=== PATIENT | male | born 1955 | race Caucasian/White ===

== ENCOUNTER 2025-01-09 16:37 | Inpatient (IN) | payer MEDICARE, OTHER ==
[~2025-01-09] VITALS: Ht 185.4 cm; Wt 110.9 kg
[~2025-01-09 16:37] MED LIST: ASPIRIN EC81 MG PO; ATORVASTATIN CA80 MG PO; BENADRYL25 MG PO; CARVEDILOL6.25 MG PO; CIPRO500 MG PO; CLOPIDOGREL75 MG PO; EPIPEN 2-P0.3 MG/0.3 IM; FAMOTIDINE20 MG PO; FLOMAX0.4 MG PO; K-TAB ER20 MEQ PO; LASIX40 MG PO; LISINOPRIL10 MG PO; OXYBUTYNIN CHLO10 MG PO; PREDNISONE20 MG PO; SEVOFLURANE 250 ML BTL INH ONE
[2025-01-09 18:38] LABS: BASOPHILS 0.5 % (0-2); EOSINOPHILS 2.1 % (0-6); HEMATOCRIT 40.2 % (35.0-50.0); HEMOGLOBIN 13.4 g/dL (12.0-18.0); LYMPHOCYTES 6.1 % (24-44); MCH 29.8 (27-36); MCHC 33.4 g/dl (30-36); MCV 89.1 fl (81-99); MONOCYTES 7.5 % (0-12); NEUTROPHILS 83.8 % (39-80); PLATELET COUNT 129 K/uL (140-440); RBC 4.51 M/ul (4.3-5.7); RDW 14.9 (10.5-15.0)
[2025-01-09 18:48] LABS: INR 1.02 (0.80-1.30); PROTIME 13.3 Sec (11.2-14.2)
[2025-01-09 18:52] LABS: ALBUMIN 3.3 g/dL (3.4-5.0); ALBUMIN/GLOBULIN RATIO 0.97 (1.1-2.4); BILIRUBIN, TOTAL 0.8 mg/dL (0.2-1.0); BUN/CREATININE RATIO 11.81 (6.0-28.6); CREATININE, SERUM 1.1 mg/dL (0.70-1.30); PROTEIN, TOTAL 6.7 g/dL (6.4-8.2)
[2025-01-09] MEDS ORDERED: ALBUTEROL SULFATE 0.083% 3 ML VIAL INH ONE (19:00)
[2025-01-09] MEDS ORDERED: SUCCINYLCHOLINE IN 0.9% NACL 200 MG/10 ML SYRINGE ONE (19:29)
[2025-01-09] MEDS ORDERED: DEXAMETHASONE SOD PHOS 4 MG/ML VIAL ONE (19:29)
[2025-01-09] MEDS ORDERED: propofoL 200 MG/20 ML VIAL ONE ×2 (19:29→20:10)
[2025-01-09] MEDS ORDERED: LIDOCAINE HCL 2% 5 ML SDV ONE (19:29)
[2025-01-09] MEDS ORDERED: ondansetron HCL 4 MG/2 ML VIAL ONE (19:29)
[2025-01-09] MEDS ORDERED: fentaNYL citrate 100 MCG/2 ML VIAL ONE (19:29)
[2025-01-09] MEDS ORDERED: SUGAMMADEX SODIUM 200 MG/2 ML ML ONE (22:11)
[2025-01-09] MEDS ORDERED: DEXTROSE 5% - LACTATED RINGERS 1,000 ML IV SCH (22:30)
[2025-01-09] MEDS ORDERED: HYDROCODONE/ACETA 5/325 TAB PO PRN (22:30)
[2025-01-09] MEDS ORDERED: PROCHLORPERAZINE EDISYLATE 10 MG/2 ML VIAL IV PRN (22:30)
[2025-01-09] MEDS ORDERED: LIDOCAINE 2% VISCOUS 6 ML SYR TOP ONE (22:30)
[2025-01-09] MEDS ORDERED: HYDROmorphone HCL 1 MG/ML SYR IV PRN (22:30)
[2025-01-09] MEDS ORDERED: fentaNYL citrate 50 MCG/ML SDV ONE (22:42)
[2025-01-09] MEDS ORDERED: KETOROLAC TROMETHAMINE 15 MG/ML VIAL ONE (22:44)
[2025-01-09] MEDS ORDERED: ACETAMINOPHEN 1,000 MG/100 ML VIAL ONE (22:44)
[2025-01-09] MEDS ORDERED: KETOROLAC TROMETHAMINE 15 MG/ML VIAL IV ONE (23:00)
[2025-01-09] MEDS ORDERED: ACETAMINOPHEN 1,000 MG/100 ML VIAL IV ONE (23:00)
[2025-01-09] MEDS ORDERED: BUDESONIDE 0.5 MG/2 ML VIAL INH SCH (23:03)
[2025-01-09] MEDS ORDERED: ALBUTEROL SULFATE 0.083% 3 ML VIAL INH PRN (23:15)
--- NOTE | 2025-01-09 23:35 | NUR ---
PATIENT ARRIVED TO CCU ROOM 128 VIA STRETCHER. HANDOFF REPORT RECEIVED FROM COURT COMMISSIONER. ALL QUESTIONS ANSWERED. RESPIRATORY THERAPY AT BEDSIDE. PATIENT ON BIPAP SETTINGS 14/6 AT 30% FIO2, TOLERATING WELL. PATIENT OPENS EYES TO TOUCH AND VERBAL STIMULI, BUT QUICKLY CLOSES EYES. PATIENT VITAL SIGNS STABLE. PATIENT DAUGHTER AT BEDSIDE, PROVIDED WITH UPDATE. PATIENT PERSONAL BELONGINGS PLACED IN CLOSET, CELL PHONE PLACED IN LOCK BOX. PATIENT REPOSITIONED IN BED. PATIENT HAS CALL LIGHT IN REACH, DOOR AND CURTAIN REMAIN OPEN FOR PATIENT SAFETY.
[2025-01-09 23:51] VITALS: BP 124/67
[2025-01-10] VITALS (14 sets, daily range): BP systolic 100–143; BP diastolic 58–85
--- NOTE | 2025-01-10 00:03 | NUR ---
01/10/25 Lily Roberts 2228- RT CALLED TO PACU FOR BIPAP PRIOR TO PT ARRIVAL. PT ARRIVES TO PACU, SEMI DARBY POSITION PULLING AT NRB MASK. O2 AT 15L PER NRB, O2 SATS 80%, ACCESSORY MUSCLE USE AND PROLONGED EXPIRATORY. PT AWAKE BUT DROWSY. LR INFUSING TO LFA IV. PT INFORMED ON NEED FOR BIPAP, ALL MONITORS IN PLACE. ABD ROUND. 2231- BIPAP IN PLACE PER RT, PT TRYING TO SLIDE DOWN IN BED AND CHANGE POSITIONS C/O UPPER BACK PAIN. PT DIFFICULT TO REDIRECT. 2235- PT NEEDING CONSTANT REMINDERS NOT TO PULL BIPAP OFF, PT IS FRUSTRATED AND WANTING BIPAP REMOVED. PT IS ANXIOUS AND CONTINUES TO CHANGE POSITION FOR BACK PAIN. 2245- PT MEDICATED WITH TORADOL AND TYLENOL IV FOR PAIN. ENCOURAGE PT TO ASSIST IN FINDING POSITION OF COMFORT. EDUCATED ON NEED FOR BIPAP, PT STILL REACHING INTERMITTENTLY FOR MASK. CONTINUE TO MONITOR, LUMBER PULLER REMAINS AT BEDSIDE. 2300- AFTER MULTIPLE POSITION CHANGES, PT APPEARS COMFORTABLE AND ABLE TO REST IN SEMI DARBY POSITION AND LEGS ELEVATED. PT RESTING WITH BIPAP IN PLACE. CONTINUE TO MONITOR. 2315- PT CONTINUES TO REST, PLAN TO MOVE PT TO ICU FOR CONTINUED CARE. 2320- PT TAKEN TO ICU WITH ALL MONITORS, BI PAP, RT, THIS RN AND LUMBER PULLER. PT MOVED FROM STRETCHER TO BED VIA SHEET LIFT. PT WAKES FOR SHORT TIME BUT ABLE TO GET COMFORTABLE AND FALL BACK TO SLEEP. 2330- ASSISTED WITH PLACED ALL MONITORS AND GETTING PT TRANSFERRED TO ICU MONITORING. REPORT TO NHNUG RN AT BEDSIDE, PT CONTINUES TO REST, RT REMAINS IN ROOM, CARE OF PT TURNED OVER AT THIS TIME.
--- NOTE | 2025-01-10 00:52 | NUR ---
VITO REPOSITIONED IN BED. PATIENT REMAINS ON BIPAP, TOLERATING WELL. SPO2 90%. PATIENT VITAL SIGNS STABLE. PATIENT DOOR AND CURTAIN REMAIN OPEN FOR PATIENT SAFETY. NO NEEDS AT THIS TIME. CALL LIGHT IN REACH.
[2025-01-10] MEDS ORDERED: ondansetron HCL 4 MG/2 ML VIAL IV PRN (01:30)
--- NOTE | 2025-01-10 01:30 | NUR ---
PATIENT AWAKE, REQUESTING TO TAKE OFF BIPAP. RT CALLED TO BEDSIDE. PATIENT TAKEN OFF BIPAP, PLACED ON 12L NC. PATIENT STATES HE NEEDS TO VOID, URINAL PROVIDED. PATIENT VOIDS 500CC. PATIENT REORIENTED TO TIME AND EVENT, UPDATED ON PLAN OF CARE. PATIENT STATES HE HAS PAIN IN HIS LOWER BACK. PRN PAIN MEDICATION GIVEN PER EMAR. PATIENT DENIES ANY NAUSEA. PATIENT STATES HE FEELS HOT, TEMPERATURE TAKEN AND WNL. HEAT TURNED DOWN IN ROOM AND BLANKETS REMOVED PER REQUEST. PATIENT HAS NO FURTHER NEEDS AT THIS TIME. CALL LIGHT IN REACH. DOOR AND CURTAIN REMAIN OPEN FOR PATIENT SAFETY.
--- NOTE | 2025-01-10 03:20 | NUR ---
PATIENT RESTING IN BED WITH EYES CLOSED, RR 12. PATIENT OXYGEN ADJUSTED PER RESPIRATORY THERAPY. PATIENT TITRATED DOWN TO 8L HIGH FLOW NC, SPO2 91%. PATIENT HAS NO NEEDS AT THIS TIME. CALL LIGHT IN REACH.
[2025-01-10 05:20] LABS: HEMATOCRIT 40.6 % (35.0-50.0); HEMOGLOBIN 13.4 g/dL (12.0-18.0); MCH 29.5 (27-36); MCHC 32.9 g/dl (30-36); MCV 89.5 fl (81-99); PLATELET COUNT 124 K/uL (140-440); RBC 4.54 M/ul (4.3-5.7); RDW 14.7 (10.5-15.0)
--- NOTE | 2025-01-10 05:20 | NUR ---
patient SPO2 drops as low as 76% while patient repositions self in bed. patient titrated up to 15L high flow NC. patient updated on plan of care for the morning. patient SPO2 93%, vital signs stable. TV turned on per request, no further needs at this time. call light in reach.
[2025-01-10 05:33] LABS: ANION GAP 10.2 (7-21); BUN/CREATININE RATIO 12.8 (6.0-28.6); CALCIUM 8.9 mg/dL (8.5-10.1); CREATININE, SERUM 1.25 mg/dL (0.70-1.30); MAGNESIUM 1.5 mg/dL (1.8-2.4); PHOSPHORUS, INORGANIC 4.6 mg/dL (2.5-4.9); POTASSIUM 4.2 mmol/L (3.5-5.1)
[2025-01-10 05:36] LABS: LYMPHOCYTES, MANUAL DIFF 6; NEUTROPHILS, MANUAL DIFF 94
--- NOTE | 2025-01-10 06:03 | NUR ---
imaging in room to obtain CXR. patient has no needs at this time. call light in reach.
--- NOTE | 2025-01-10 06:30 | NUR ---
PATIENT TITRATED DOWN TO 5L HIGH FLOW NC, SPO2 95%. PATIENT HAS NO NEEDS AT THIS TIME. CALL LIGHT IN REACH.
--- NOTE | 2025-01-10 06:40 | CONS ---
[facility] [address], [place] [address] Signed DATE OF CONSULTATION: 01/09/2025 CHIEF COMPLAINT: Esophageal foreign body. HISTORY OF PRESENT ILLNESS: Amando is a 69-year-old significantly disabled gentleman who was eating steak yesterday, had it get stuck in his throat. He said he has not passed and he has been coughing up saliva ever since. He came to the emergency room for evaluation. He said he has COPD at his baseline and often has rhonchi. He said he is out of his inhalers and has not taken them in quite some time. I have been asked to see him as a local general surgeon on-call here in the emergency room. His daughter is with him. PAST MEDICAL HISTORY: 1. Lower extremity edema. 2. COPD. 3. Congestive heart failure. 4. Gallstones. 5. Kidney stones. 6. Hypertension. 7. Hyperlipidemia. 8. Bladder spasms. 9. Obesity. 10. Peripheral arterial disease. PAST SURGICAL HISTORY: Includes: 1. Right femoral artery stent. 2. Right ankle fracture repair with metal remaining. SOCIAL HISTORY: He does smoke marijuana. His daughter is Consuelo at [phone]. Dianne Cruz is his nurse practitioner in [place], [place]. He prefers the [facility]. FAMILY HISTORY: None. REVIEW OF SYSTEMS: He had 10 systems reviewed and those were included in the above. ALLERGIES: Cipro. Electronically Signed By: LANE PARRY MD 01/10/25 0640 PATIENT NAME: AMANDO COBURN [facility] CONSULTATION DATE OF : 55 REPORT #: [id number] PHYSICIAN: LANE PARRY MD PCP: DIANNE CRUZ NP REPORT IS CONFIDENTIAL AND NOT TO BE RELEASED WITHOUT AUTHORIZATION [facility] [address], [place] [address] Signed MEDICATIONS: 1. Epinephrine pen. 2. Carvedilol. 3. Atorvastatin. 4. Oxybutynin. 5. Potassium. 6. Flomax. 7. Plavix. 8. Lisinopril. 9. Furosemide. PHYSICAL EXAMINATION: VITAL SIGNS: Blood pressure is 152/87, heart rate 87, respiratory rate 16, temperature is 98.3. He is 92% on room air. He is 6 feet 1 inch tall 110 kg with a body mass index of 32. GENERAL: Amando is a 69-year-old gentleman lying supine semi-recumbent in his ER bed. He appears older than his stated age. He has a very full round face. He has a full face barajas and mustache. LUNGS: He has moderately distant breath sounds. He does have mild bilateral rhonchi. HEART: Regular rate and rhythm without murmurs. ABDOMEN: Obese, but soft and nontender. LABORATORY DATA: His white blood cell count 12.7, hemoglobin 13, neutrophils 83, platelets 129. X-rays, none. ASSESSMENT AND PLAN: Amando is a 69-year-old significantly disabled gentleman, who is here with an esophageal foreign body consisting of steak. I explained to him the nature of an upper endoscopy. He said he has never consented for a lower endoscopy. We reviewed the test in detail. There is risk including, but not limited to gas bloating, crampy abdominal pain, bleeding, perforation requiring surgery, and missed diagnosis. We also reviewed the need for monitored anesthesia care. He understands he will be in the hospital for an hour or two after the procedure and go home later. He has expressed understanding and would like to proceed. Lane Parry MD ALB/MODL /[id number] Electronically Signed By: LANE PARRY MD 01/10/25 0640 PATIENT NAME: AMANDO COBURN [facility] CONSULTATION DATE OF : 55 REPORT #: [id number] PHYSICIAN: LANE PARRY MD PCP: DIANNE CRUZ NP REPORT IS CONFIDENTIAL AND NOT TO BE RELEASED WITHOUT AUTHORIZATION [facility] [address] [place] [id number] Signed cc: SEEMA [place] Andrew L Bower, MD Copies: LANE PARRY MD ~ Electronically Signed By: LANE PARRY MD 01/10/25 0640 PATIENT NAME: AMANDO COBURN [facility] CONSULTATION DATE OF : 55 REPORT #: [id number] PHYSICIAN: LANE PARRY MD PCP: DIANNE CRUZ NP REPORT IS CONFIDENTIAL AND NOT TO BE RELEASED WITHOUT AUTHORIZATION
--- NOTE | 2025-01-10 06:40 | OR ---
[facility] [address] [place], [place] [address] Signed DATE OF OPERATION: 01/09/2025 SURGEON: Lane Parry MD PREOPERATIVE DIAGNOSIS: Esophageal foreign body (steak). POSTOPERATIVE DIAGNOSES: 1. Esophageal foreign body (steak) at 30 cm. 2. GE junction at 35 cm. PROCEDURE: EGD with foreign body removal. FINDINGS: Amando has an area about 5 cm or so above his GE junction near the heart that is just wide enough to pass the adult gastroscope. Of course, it was edematous and inflamed from the steak being lodged there for a [id number]-half. We did not see any obvious cancer or tumor. There was some concern that it could be some compression from the outside. We did take a chest x-ray, which showed already ETT in good position and there seems to be some type of suture and/or may be a stent at the left hilum of the lung. He also has some volume loss of his left hemithorax and he has some ill-defined opacity brought in the left retrocardiac area. INDICATIONS: Amando is a 69-year-old significantly disabled gentleman with a long history of smoking, now with significant COPD, congestive heart failure and obesity along with pulmonary edema and lower extremity edema with stents in the heart and his femoral arteries. He had smoked in the past now. He does smoke a little marijuana every day. He was eating some steak yesterday when he got stuck in his esophagus and when it would not pass, he finally came to the emergency room. His white count was a little elevated. Chest x-ray was not done initially in the ER. I was asked to see him as a local general surgeon in the emergency room. I had reviewed with him and his daughter the above findings. We explained the need to do an upper endoscopy. We have to be under general endotracheal tube anesthesia to protect the airway. Most of these patients go home afterwards. There is risk including, but not limited to gas bloating, crampy abdominal pain, bleeding, perforation requiring surgery, and missed diagnosis. Amando and his daughter had expressed understanding and wished to proceed. DESCRIPTION OF PROCEDURE: Electronically Signed By: LANE PARRY MD 01/10/25 0640 PATIENT NAME: AMANDO COBURN [facility] OPERATIVE REPORT DATE OF : 55 REPORT #: [id number] PHYSICIAN: LANE PARRY MD PCP: DIANNE CRUZ NP REPORT IS CONFIDENTIAL AND NOT TO BE RELEASED WITHOUT AUTHORIZATION [facility] [address] [place] [id number] Signed Amando was taken into our endoscopy suite and placed in the supine semi-recumbent position. He was placed under general endotracheal tube anesthesia. Initially with a small 7 mm tube. We were having some hypoxia and he was not moving air very well. We gave him an albuterol treatment before waking the endoscopy suite. We gave him some more albuterol while he was intubated. We took a chest x-ray and the ET tube was in good position. There was no pneumothorax, but there was volume loss in that left hemithorax and some type of suture line near the hilum of the left lung and then there was an ill-defined opacity behind the left retrocardiac area. We finally took out the 7 mm tube and replaced it for an 8 mm tube. Overall, that seemed to be better. We had to repeatedly pass the upper scope on the right side down the esophagus to this piece of steak in his esophagus. It was only about 30 cm from the incisors. We used every instrument we had including the snare biopsy forceps and three prong forceps to cut and piecemeal this piece of steak until we finally got it, slowly pushed through and it went another 5 or 6 cm and then down into the stomach. He had a little bit of inflammation in the bottom of the stomach. No ulcerations are upon retroflexion of scope we did not see a hiatal hernia. His distal esophagus is fine, but again 5 or 6 cm above the GE junction next to the heart beating, there was a little bit of resistance there with the adult gastroscope. Of course, it was inflamed and edematous, but I did not see in any obvious cancer. It is a question whether not something is compressing this on the outside. Above this, the esophagus was fine as well. After this, we weaned him from his anesthesia, extubated him in the endoscopy suite and we took him into our recovery room in stable condition. We put him on CPAP and we decided we would keep him overnight and so we contacted our hospitalist service. We are going to have him n.p.o. after midnight for sure. We will do a CT scan of his chest tomorrow to evaluate this area. I reviewed this with his daughter. She is in agreement. Overall, Amando tolerated the procedure well. Lane Parry MD ALB/MODL /[id number] cc: MD Dianne Parker NP [place] Electronically Signed By: LANE PARRY MD 01/10/25 0640 PATIENT NAME: AMANDO COBURN OPERATIVE REPORT DATE OF : 55 REPORT #: [id number] PHYSICIAN: LANE PARRY MD PCP: DIANNE CRUZ NP REPORT IS CONFIDENTIAL AND NOT TO BE RELEASED WITHOUT AUTHORIZATION [facility] [address] [place] [id number] Signed Copies: LANE PARRY MD ~ Electronically Signed By: LANE PARRY MD 01/10/25 0640 PATIENT NAME: AMANDO COBURN OPERATIVE REPORT DATE OF : 55 REPORT #: [id number] PHYSICIAN: LANE PARRY MD PCP: DIANNE CRUZ NP REPORT IS CONFIDENTIAL AND NOT TO BE RELEASED WITHOUT AUTHORIZATION
[2025-01-10] MEDS ORDERED: KETOROLAC TROMETHAMINE 30 MG/ML VIAL IV PRN (06:44)
[2025-01-10] MEDS ORDERED: MAGNESIUM SULFATE 2 GM/50 ML BAG IV ONE (06:45)
--- NOTE | 2025-01-10 06:55 | NUR ---
PATIENT TITRATED DOWN TO 3L HIGH FLOW NC. PATIENT SPO2 92%. PATIENT RESTING WITH EYES CLOSED, RR 16. PATIENT HAS NO NEEDS AT THIS TIME. CALL LIGHT IN REACH.
--- NOTE | 2025-01-10 07:50 | NUR ---
PT TAKEN DOWN FOR CT AND BROUGHT BACK, TOLERATED PROCEDURE WELL. IRRITABLE AND UNHAPPY ABOUT NOT BEING ABLE TO EAT OR DRINK, DISCUSSED PLAN OF CARE WITH HIM INCLUDING NEED TO WAIT FOR CT RESULTS AND THEN UPDATE DR PARRY AND ASK ABOUT POSSIBLE DIET CHANGE, AND PT WANTING TO SLEEP AT THIS TIME, REFUSES NEB TX AT THIS TIME. SPO2 95% ON 5L/HFNC.
[2025-01-10] MEDS ORDERED: ALBUTEROL/IPRATROPIUM 3 ML NEB INH SCH ×2 (08:00→12:00)
[2025-01-10] MEDS ORDERED: CEFEPIME HCL 2 GM in SODIUM CHLORIDE 0.9% 100 ML IV SCH (08:45)
[2025-01-10] MEDS ORDERED: metroNIDAZOLE/SODIUM CHLORIDE 500 MG/100 ML PIGGYBACK IV SCH (08:45)
[2025-01-10] MEDS ORDERED: CEFEPIME HCL 2 GM VIAL ONE ×4 (09:00→22:25)
[2025-01-10] MEDS ORDERED: MAGNESIUM SULFATE 50 ML IV ONE (09:00)
[2025-01-10] MEDS ORDERED: PANTOPRAZOLE SODIUM 40 MG/10 ML VIAL IV SCH (09:00)
--- NOTE | 2025-01-10 09:07 | NUR ---
PT HAS SLEPT THE LAST HOUR, RT IN TO DO NEB TX. DAUGHTER ALSO IN TO SEE PT.
--- NOTE | 2025-01-10 09:31 | NUR ---
CALL FROM DR PARRY WHO HAS SEEN CT RESULTS, OKAY FOR PT TO TRY CLEAR LIQUIDS. DR PATUNG IN TO SEE PT. PT GIVEN WATER, TAKING SIPS WITHOUT DIFFICULTY.
[2025-01-10] MEDS ORDERED: methylPREDNISolone SOD SUCC 40 MG/ML VIAL IV SCH (09:45)
[2025-01-10] MEDS ORDERED: CLOPIDOGREL BISULFATE 75 MG TAB PO SCH (10:00)
[2025-01-10] MEDS ORDERED: TAMSULOSIN HCL 0.4 MG CAP PO SCH (10:00)
[2025-01-10] MEDS ORDERED: NICOTINE 7 MG/24 HR 1 EA TDSY TD SCH (10:00)
--- NOTE | 2025-01-10 10:00 | NUR ---
INTO SEE PATIENT. PATIENT PERSONAL INFORMATION REVIEWED WITH HIM AND HIS DAUGHTER BERHANE. PATIENT LIVES IN A HOUSE IN [place]. HAS A RAMP TO GET INTO DOES NOT USE WALKER, CANE OR WHEELCHAIR. PATIENT USES [employer] FOR OXYGEN. 3 LITERS CHRONIC. HE DRIVES AT [place]. DAUGHTER WILL PICK HIM UP AT DISCHARGE. HE HAS A ROOMMATE ELIZABETH THAT HELPS HIM A LITTLE BIT. PATIENT HAS MAXED OUT BENEFITS WITH [employer]. RECIEVES 90 DOLLARS IN FOOD STAMPS AND IS SET UP WITH MEALS ON WHEELS. PATIENT DENIES ANY CM NEEDS AT THIS TIME.
[2025-01-10] MEDS ORDERED: BUDESONIDE0.5 MG/2 M INH (10:29)
[2025-01-10] MEDS ORDERED: CITALOPRAM HBR20 MG PO (10:30)
[2025-01-10] MEDS ORDERED: AMLODIPINE BESY10 MG PO (10:31)
[2025-01-10] MEDS ORDERED: IPRAT-ALBUT 0.5-3 ML INH (10:31)
[2025-01-10] MEDS ORDERED: FINASTERIDE5 MG PO (10:32)
[2025-01-10] MEDS ORDERED: CARVEDILOL25 MG PO (10:33)
--- NOTE | 2025-01-10 11:10 | NUR ---
UR CLINICAL REVIEW: 2MN CLARIBEL, MEETS INPT FOR FOREIGN BODY IN ESOPHAGUS REQUIREING EGD INTERVENTION, MULTIFOCAL ASPERATION PNEUMONIA AND CHF. OXYGEN NEEDED, IV PAIN CONTROL, IV ANTIBIOTICS, IV STEROIDS, ECHO ORDERED. MEDICARE INPT 01/09/2025 @ 2234 ORDER MATCHES REG. NO AUTH REQUIRED PER MEDICARE RULES. PLAN TO DC TO HOME WHEN MEDICALLY STABLE.
--- NOTE | 2025-01-10 11:17 | NUR ---
PT NOT AVAILABLE FOR VISIT. PROVIDED PRAYER.
--- NOTE | 2025-01-10 11:37 | NUR ---
PT IRRITABLE AND UNCOMFORTABLE. ASSISTED UP TO CHAIR, O2 TURNED UP TO 10L FOR TRANSFER, PTS SATS WENT DOWN TO 70'S BRIEFLY WITH ACTIVITY, RECOVERED QUICKLY ONCE SITTING IN CHAIR, O2 DOWN TO 6L THEN 4L WITH SPO2 93%. PT COUGHING UP LARGE AMOUNTS OF SPUTUM.
--- NOTE | 2025-01-10 11:52 | EKG ---
[facility] [address] [facility] [place], [place] [address] Signed Normal sinus rhythm Normal ECG No previous ECGs available Confirmed by Deon Espinoza MD ([id number]) on 01/10/2025 11:52:19 AM Electronically Signed By: DEON ESPINOZA MD 01/10/25 1152 PATIENT NAME: LYDIA COBURN [facility] Electrocardiogram DATE OF : 55 PHYSICIAN: DEON ESPINOZA MD REPORT #: [id number] REPORT IS CONFIDENTIAL AND NOT TO BE RELEASED WITHOUT AUTHORIZATION
[2025-01-10] MEDS ORDERED: NITROSTAT0.4 MG SL (12:33)
--- NOTE | 2025-01-10 12:34 | NUR ---
MED REC COMPLETE
--- NOTE | 2025-01-10 12:40 | NUR ---
PT REMAINS UP IN CHAIR, DAUGHTER OUT TO REPORT PT IS HAVING BACK PAIN, 2 TABS [employer]CO GIVEN FOR 7/10 BACK PAIN.
[2025-01-10] MEDS ORDERED: FINASTERIDE 5 MG TAB PO SCH (14:27)
[2025-01-10] MEDS ORDERED: CITALOPRAM HYDROBROMIDE 20 MG TAB PO SCH (14:28)
--- NOTE | 2025-01-10 14:30 | NUR ---
PT CONT TO SIT UP IN CHAIR SLEEPING, O2 AT 3L/HFNC WITH SPO2 94%.
--- NOTE | 2025-01-10 18:09 | NUR ---
ECHO HAS JUST FINISHED, DAUGHTERS IN ROOM, PT SITTING UP TO EAT SOME CLAM CHOWDER.
--- NOTE | 2025-01-10 19:35 | NUR ---
HANDOFF REPORT RECEIVED FROM DAY SHIFT RN. PATIENT RESTING IN BED WITH EYES CLOSED, NO ACUTE DISTRESS NOTED. FAMILY AT BEDSIDE. NO NEEDS AT THIS TIME. CALL LIGHT IN REACH.
--- NOTE | 2025-01-10 19:41 | NUR ---
EDGAR IS ASLEEP ON A 3L SALTER HFNC OFF THE WALL. HE ABLE TO DO THE CORNET LEVEL 5 W/O DIFFICULTY OR INCREASED S/S OF RESPIRATORY DISTRESS.
--- NOTE | 2025-01-10 20:15 | NUR ---
patient assessment complete. patient remains on 3L high flow NC, tolerating well. patient alert and oriented, updated on plan of care for the night. patient daughter at bedside. patient IV site WNL. patient has no needs at this time. call light in reach.
--- NOTE | 2025-01-10 22:50 | NUR ---
patient awake in bed. denies feeling any nausea or pain at this time. patient repositioned in bed. provided with fresh ice water. patient remains on 3L high flow NC, tolerting well. patient vital signs stable. patient ABX infusing per EMAR. IV site WNL. daughter remains at bedside, provided with warm blanket. no further needs at this time. call light in reach.
[2025-01-11] VITALS (12 sets, daily range): BP systolic 107–136; BP diastolic 62–85
--- NOTE | 2025-01-11 00:26 | NUR ---
EDGAR IS CURRENTLY AWAKE IN BED ON A 5L SALTER HFNC OFF THE WALL, FLICKING THROUGH CHANNELS ON THE TV. HOB IS ELEVATED TO 30 DEGREES. CORNET LEVEL 5 DONE W/O DIFFICULTY.
--- NOTE | 2025-01-11 00:49 | NUR ---
PATIENT AWAKE IN BED WATCHING TV. PATIENT ON 5L HIGH FLOW NC, SPO2 90%. PATIENT VITAL SIGNS STABLE. PATIENT CONTINUES TO HAVE OCCASIONAL PRODUCTIVE COUGH. PATIENT DENIES ANY PAIN OR NAUSEA AT THIS TIME. PATIENT DAUGHTER ASLEEP AT BEDSIDE. NO NEEDS AT THIS TIME. IV ABX INFUSING PER EMAR, IV SITE WNL. CALL LIGHT IN REACH.
--- NOTE | 2025-01-11 02:35 | NUR ---
patient desats as low as 79% while sleeping. O2 titrated up to 7L high flow NC. patient awakens with this RN in room. patient back up to 91% SPO2. patient states he is comfortable at this time and has no further needs. call light in reach.
--- NOTE | 2025-01-11 03:44 | NUR ---
patient resting with eyes closed, RR 16. patient remains on 5L high flow NC, SPO2 91%. patient has no needs at this time. call light in reach.
--- NOTE | 2025-01-11 05:05 | NUR ---
patient laying awake in bed, states he has lower back pain and is requesting pain medication. PRN pain medication given per EMAR. patient provided with fresh ice water. patient remains on 5L high flow NC, SPO2 91%. patient has no further needs at this time. call light in reach.
[2025-01-11 05:14] LABS: BASOPHILS 0.2 % (0-2); HEMATOCRIT 35.8 % (35.0-50.0); HEMOGLOBIN 11.8 g/dL (12.0-18.0); LYMPHOCYTES 2.1 % (24-44); MCH 29.6 (27-36); MCHC 32.8 g/dl (30-36); MCV 90.2 fl (81-99); MONOCYTES 2.5 % (0-12); NEUTROPHILS 95.2 % (39-80); PLATELET COUNT 118 K/uL (140-440); RBC 3.97 M/ul (4.3-5.7); RDW 14.7 (10.5-15.0)
[2025-01-11 05:30] LABS: ANION GAP 9.3 (7-21); BUN/CREATININE RATIO 19.65 (6.0-28.6); CALCIUM 8.2 mg/dL (8.5-10.1); CREATININE, SERUM 1.17 mg/dL (0.70-1.30); POTASSIUM 4.3 mmol/L (3.5-5.1)
[2025-01-11] MEDS ORDERED: CEFEPIME HCL 2 GM VIAL ONE (06:03)
--- NOTE | 2025-01-11 08:03 | NUR ---
DECREASED 02 TO 2 LPM
[2025-01-11] MEDS ORDERED: IBUPROFEN 600 MG TAB PO PRN (08:15)
--- NOTE | 2025-01-11 08:21 | NUR ---
DECREASED 02 TO 2 LPM. 79% ON ROOM AIR WITH ACTIVITY. 85% ON ROOM AIR RECOVERY. REPLACED 2 LPM.
[2025-01-11] MEDS ORDERED: PANTOPRAZOLE SODIUM 40 MG TABEC PO SCH (09:00)
--- NOTE | 2025-01-11 10:15 | NUR ---
IN TO DO AM MEDS, PT DOES NOT WANT NICOTINE PATCH.
--- NOTE | 2025-01-11 11:25 | NUR ---
RT IN TO DO NEB TX.
[2025-01-11] MEDS ORDERED: CEFEPIME HCL 1 GM in SODIUM CHLORIDE 0.9% 100 ML IV SCH (14:00)
--- NOTE | 2025-01-11 14:23 | NUR ---
PT HAS JUST FINISHED WORKING WITH PHYSICAL THERAPY, IN SITTING UP IN BED, NO REQUESTS.
[2025-01-11] MEDS ORDERED: CEFEPIME HCL 1 GM VIAL ONE ×3 (15:10→20:01)
--- NOTE | 2025-01-11 18:00 | NUR ---
PT ATE ALL HIS DINNER, BED BATH DONE AND LINEN CHANGE DONE. PT STOOD UP TO EDGE OF BED TO CHANGE PANTS, SPO2 DOWN TO 85%, RECOVERED QUICKLY AFTER O2 UP, THEN TITRATED BACK DOWN. TEMP 100.1, HR ALSO NOTED TO BE HIGHER THIS EVENING, DR FLORES AWARE.
--- NOTE | 2025-01-11 19:45 | NUR ---
EDGAR IS AWAKE SITTING IN BED ON A 1L SALTER HFNC OFF THE WALL. HOB IS ELEVATED TO 45 DEGREES. EDGAR IS ABLE TO USE THE CORNET LEVEL 5 W/O DIFFICULTY OR S/S OF INCREASED RESPIRATORY DISTRESS.
[2025-01-11] MEDS ORDERED: SODIUM CHLORIDE 0.9% 100 ML IV ONE (20:03)
--- NOTE | 2025-01-11 20:36 | NUR ---
PATIENT UP TO THE BATHROOM. SBA FOR CORD MANAGEMENT. PATIENT VOIDED TO URNAL. TOLERATED WELL WITH MILD DYSPNEA. DENIED FEELING SOB. RR 30'S WITH ACTIVITY. TOLERATED 3L NC. BACK TO BED. DENIED OTHER NEEDS. CALL LIGHT IN REACH. FAMILY AT BEDSIDE.
--- NOTE | 2025-01-11 22:00 | NUR ---
MEDS GIVEN PER ORDER; PATIENT REPORTS IMPROVED PAIN CONTROL AFTER RECEIVING PRN PAIN MEDS. RESTING IN BED. FAMILY IN ROOM. TOLERATING 1L NC.
[2025-01-12] VITALS (12 sets, daily range): BP systolic 106–159; BP diastolic 67–81
--- NOTE | 2025-01-12 00:21 | NUR ---
EDGAR IS CURENTLY ON A 2L NC SLEEPING. HE DOES APPEAR TO NEED OXYGEN ON WHILE HE IS ASLEEP.
--- NOTE | 2025-01-12 01:00 | NUR ---
URNAL EMPTIED. PATIENT RESTING IN BED; DENIED ANY NEEDS. Sp02 86% ON 2L NC. TITRATED TO 3L; Sp02 INCREASED TO 89%. ALLOWED PATIENT TO REST.
[2025-01-12] MEDS ORDERED: CEFEPIME HCL 1 GM VIAL ONE ×4 (02:29→19:37)
--- NOTE | 2025-01-12 02:40 | NUR ---
EDGAR HAD TO BE PLACED BACK ON THE SALTER HFNC OFF THE WALL AT 7L TO MAINTAIN AN SPO2 GREATER THAN 87%.
--- NOTE | 2025-01-12 02:57 | NUR ---
patient continues to desat to low 80's while sleeping; titrated to 10L high flow.
--- NOTE | 2025-01-12 04:44 | NUR ---
EDGAR IS CURRENTLY ON A 10L SALTER HFNC OFF THE WALL. WHEN HE IS SOUND ASLEEP, HE NOT ONLY SNORES, BUT HAS SUSTAINED DESATURATIONS SOME OF WHICH HOVER AROUND 80%.
[2025-01-12 05:18] LABS: HEMATOCRIT 34.4 % (35.0-50.0); HEMOGLOBIN 11.1 g/dL (12.0-18.0); LYMPHOCYTES 2.4 % (24-44); MCH 29.3 (27-36); MCHC 32.2 g/dl (30-36); MCV 90.8 fl (81-99); MONOCYTES 2.4 % (0-12); NEUTROPHILS 95.2 % (39-80); PLATELET COUNT 126 K/uL (140-440); RBC 3.79 M/ul (4.3-5.7); RDW 15.1 (10.5-15.0)
[2025-01-12 05:49] LABS: ANION GAP 9.7 (7-21); BUN/CREATININE RATIO 28.35 (6.0-28.6); CALCIUM 8.8 mg/dL (8.5-10.1); CREATININE, SERUM 1.34 mg/dL (0.70-1.30); MAGNESIUM 1.9 mg/dL (1.8-2.4); POTASSIUM 4.7 mmol/L (3.5-5.1)
--- NOTE | 2025-01-12 07:30 | NUR ---
REPORT RECEIVED FROM CAREY MOLINA. PT AWAKE IN BED, DAUGHTER AT BEDSIDE, VSS.
--- NOTE | 2025-01-12 07:49 | NUR ---
RT IN TO DO NEB TX, ASESSSMENT DONE, COFFEE GIVEN PER REQUEST. RT HAS JUST TURNED O2 DOWN FROM 10L TO 2L WITH SPO2 90% RR 16. PT HAS EXW WHEEZES THROUGHOUT, DIM IN BOTH BASES. DENIES PAIN.
[2025-01-12] MEDS ORDERED: ALBUTEROL/IPRATROPIUM 3 ML NEB INH SCH ×3 (08:00→12:00)
--- NOTE | 2025-01-12 08:20 | NUR ---
IN TO DO AM MEDS, POSITION PT UP IN BED FOR BREAKFAST. PT HAS NO COMPLAINTS AT THIS TIME, DAUGHTER BERHANE IN ROOM.
[2025-01-12] MEDS ORDERED: ENOXAPARIN SODIUM 40 MG/0.4 ML SYR SUB-Q SCH (09:00)
--- NOTE | 2025-01-12 09:30 | NUR ---
PT HAS EATEN ALL OF HIS BREAKFAST AND TOLERATED IT WELL, NO REQUESTS AT THIS TIME, INFORMED OF POSSIBILITY OF MOVING ROOMS TODAY AND PT IS AGREEABLE.
--- NOTE | 2025-01-12 10:55 | NUR ---
REPORT GIVEN TO VINAYAK MOLINA, MED SURG NURSE AND PT THEN TRANSFERRED OVER TO MED SURG WITH DAUGHTER BERHANE.
--- NOTE | 2025-01-12 11:31 | NUR ---
Patient to to medical floor from CCU dept. Patient is alert and oriented x3, pt conversing with staff. Patient denies sob at this time, sp02 93% on 2L oxygen. Pt's daughter at bedside. RT in room admin breathing treatment. Pt oriented to room and call light.
--- NOTE | 2025-01-12 11:54 | NUR ---
Physical therapy in working with patient.
--- NOTE | 2025-01-12 14:32 | NUR ---
Patient resting in chair, easily wakes to verbal stimuli, answers questions appropriately. Vital signs stable, sp02 90% on 2L, respirations non labored. Patient has no notable distress. Call light within reach.
--- NOTE | 2025-01-12 19:21 | NUR ---
REPORT RECEIVED FROM DAY SHIFT RN. PT LYING IN BED RESTING WITH EYES CLOSED. RESPIRATIONS EVEN. FAMILY AT BEDSIDE. WHITE BOARD UPDATED. CALL LIGHT IN REACH.
--- NOTE | 2025-01-12 20:06 | NUR ---
PT RESTING WITH EYES CLOSED. AWAKENS EASILY. VS AND I&O OBTAINED. EVENING ASSESSMENT COMPLETE. SCHEDULED MEDS ADMIN PER EMAR. PT DENIES PAIN OR NAUSEA. DENIES SOB. 2L/NC IN PLACE. SpO2 LOW 90'S. SCATTERED WHEEZE HEARD THROUGHOUT. PT DENIES QUESTIONS OR CONCERNS. CALL LIGHT IN REACH.
--- NOTE | 2025-01-12 21:56 | NUR ---
EDGAR IS AWAKE SITTING UPRIGHT IN BED ON A 2L SALTER HFNC OFF THE WALL. HOB IS ELEVATED TO 49 DEGREES.
--- NOTE | 2025-01-12 22:30 | NUR ---
PT AWAKE IN BED WATCHING TV. SCHEDULED MEDS ADMIN PER EMAR. DENIES NEEDS AT THIS TIME. CALL LIGHT IN REACH.
--- NOTE | 2025-01-13 00:35 | NUR ---
PT AWAKE IN BED WATCHING TV. FRESH WATER PROVIDED. NO FURTHER NEEDS.
[2025-01-13] MEDS ORDERED: CEFEPIME HCL 1 GM VIAL ONE ×3 (01:09→13:33)
--- NOTE | 2025-01-13 01:46 | NUR ---
IV ABX INFUSING PER ORDER. ASSESSMENT COMPLETE. SCATTERED WHEEZE HEARD THROUGHOUT. RT CALLED FOR BREATHING TX. PT DENIES SOB. SpO2 LOW 90'S WITH 2L/HFNC IN PLACE. NO FURTHER NEEDS. CALL LIGHT IN REACH.
--- NOTE | 2025-01-13 01:54 | NUR ---
EDGAR IS AWAKE ON A 2L SALTER HFNC OFF THE WALL. HOB IS ELEVATED. EDGAR ASKED FOR A PRN BREATHING TREATMENT.
--- NOTE | 2025-01-13 04:10 | NUR ---
PT RESTING IN BED WITH EYES CLOSED. RESPIRATIONS EVEN. CALL LIGHT IN REACH.
[2025-01-13 05:13] VITALS: BP 122/62
[2025-01-13 05:26] VITALS: BP 122/62
[2025-01-13 05:31] LABS: BASOPHILS 0.1 % (0-2); EOSINOPHILS 0.1 % (0-6); HEMATOCRIT 34.4 % (35.0-50.0); HEMOGLOBIN 11.3 g/dL (12.0-18.0); MCH 29.6 (27-36); MCHC 32.7 g/dl (30-36); MCV 90.4 fl (81-99); MONOCYTES 2.9 % (0-12); NEUTROPHILS 93.9 % (39-80); PLATELET COUNT 136 K/uL (140-440); RBC 3.81 M/ul (4.3-5.7); RDW 14.5 (10.5-15.0)
--- NOTE | 2025-01-13 05:39 | NUR ---
CPOX ALARMING. SpO2 LOW 80'S ON 2L/HFNC. PT FLAT IN BED LYING ON LEFT SIDE. OXYGEN TITRATED TO MAINTAIN SATS >90% UP TO 10L. HOB ELEVATAED. PT ENCOURAGED TO COUGH AND DEEP BREATHE. PT ABLE TO CLEAR BLOOD TINGED SPUTUM. SpO2 93% ON 10L. OXYGEN TITRATED TO BACK TO 2L/NC. SpO2 REMAINS LOW 90'S. SCHEDULED MEDS ADMIN PER EMAR. PT DENIES FURTHER NEEDS. CALL LIGHT IN REACH.
[2025-01-13 05:42] LABS: ANION GAP 9.5 (7-21); BUN/CREATININE RATIO 31.35 (6.0-28.6); CALCIUM 8.8 mg/dL (8.5-10.1); CREATININE, SERUM 1.18 mg/dL (0.70-1.30); MAGNESIUM 1.7 mg/dL (1.8-2.4); POTASSIUM 4.5 mmol/L (3.5-5.1)
--- NOTE | 2025-01-13 07:25 | NUR ---
REPORT RECEIVED FROM JESSE CORCORAN.
--- NOTE | 2025-01-13 07:48 | NUR ---
PT GIVEN COFFEE WITH SUGAR. REAL ESTATE AGENT IN ROOM. DENIES NEEDS ATT.
[2025-01-13] MEDS ORDERED: MAGNESIUM SULFATE 2 GM/50 ML BAG IV ONE (08:30)
--- NOTE | 2025-01-13 08:45 | NUR ---
INTO SEE PATIENT. DAUGHTER BERHANE AT BEDSIDE. PATIENT EATING BREAKFAST. BERHANE WILL BE THE ONE TO TAKE HIM HOME AT DISCHARGE. PATIENT LIVES IN [place] WITH ROOMMATE ELIZABETH. PT RECCOMENDS OUTPATIENT THERAPY. PATIENT WILLING TO GO. WILL FAX PAPERWORK TO THERAPY AT TIME OF D/C. NO FUTHER CM NEEDS AT THIS TIME.
[2025-01-13 09:06] VITALS: BP 137/80
--- NOTE | 2025-01-13 11:16 | NUR ---
pt called, magnesium was burning. diluted with ns. pt states it is better.
[2025-01-13] MEDS ORDERED: metroNIDAZOLE 250 MG TAB PO SCH ×2 (13:00→16:00)
--- NOTE | 2025-01-13 13:00 | NUR ---
PT IN ROOM EATING LUNCH WITH DTR. DENIES CONCERNS. DR IN ROOM TO DISCUSS PLAN.
[2025-01-13 13:25] VITALS: BP 155/96
--- NOTE | 2025-01-13 14:25 | NUR ---
REMOVED PT IV IT HAD STOPPED FLUSHING AND WAS PAINFUL. NO SS OF INFILTRATION OR REDNESS.
--- NOTE | 2025-01-13 15:06 | NUR ---
FAXED O2 QULAIFIER TO [facility]. PATIENT ALREADY ESTABLISHED. SENDING TANK HOME WITH HIM AT TIME OF DISCHARGE. NO FUTHER CM NEEDS.
[2025-01-13] MEDS ORDERED: METRONIDAZOLE250 MG PO (15:18)
[2025-01-13] MEDS ORDERED: CEFDINIR300 MG PO (15:19)
[2025-01-13] MEDS ORDERED: PANTOPRAZOLE SO40 MG PO (15:20)
[2025-01-13] MEDS ORDERED: PREDNISONE20 MG PO (15:22)
--- NOTE | 2025-01-13 15:39 | NUR ---
OUTPATIENT THERAPY ORDER SENT TO [facility] OUTPATIENT THERAPY
--- NOTE | 2025-01-13 16:15 | NUR ---
PATIENT TOOK A SHOWER AND WASHED HIS HAIR. I HELPED HIM GET DRESSED A LITTLE BIT. PICKED UP THE TOWELS AND WASH CLOTHS AND BATH BLANKETS. GATHERED ALL OF HIS STUFF TO GO HOME WITH AND PUT IT ON HIS BED.
--- NOTE | 2025-01-13 16:18 | NUR ---
PT ASSISTED WITH SHOWER BY HALLE JHAVERI. IV REMOVED WNL.
== END 2025-01-13 16:58 | disposition home or self-care (01) | DRG 177 ==
LOC: ED 16:37 → DSVR 19:14 → CCU 22:34 → MS 22:34 → CCU 22:35 → MS 01-12 11:00
PROVIDERS: Emergency Medicine; ADMIT Colon & Rectal Surgery; ATTEND Student in an Organized Health Care Education/Training Program
PROC: 5A09357 Assistance with Respiratory Ventilation, Less than 24 Consecutive Hours, Continuous Positive Airway Pressure (ICD-10-PCS; 2025-01-09)
PROC: 0DC58ZZ Extirpation of Matter from Esophagus, Via Natural or Artificial Opening Endoscopic (ICD-10-PCS; principal; 2025-01-09 19:38)
DX: J69.0 Pneumonitis due to inhalation of food and vomit (principal); J95.821 Acute postprocedural respiratory failure; J44.1 Chronic obstructive pulmonary disease with (acute) exacerbation; T18.128A Food in esophagus causing other injury, initial encounter; E66.9 Obesity, unspecified; I25.10 Atherosclerotic heart disease of native coronary artery without angina pectoris; N40.0 Benign prostatic hyperplasia without lower urinary tract symptoms; N32.81 Overactive bladder; Z88.1 Allergy status to other antibiotic agents; I73.9 Peripheral vascular disease, unspecified; E83.42 Hypomagnesemia; I87.8 Other specified disorders of veins; I50.9 Heart failure, unspecified; I11.0 Hypertensive heart disease with heart failure; Z98.890 Other specified postprocedural states; Z87.891 Personal history of nicotine dependence; Z79.02 Long term (current) use of antithrombotics/antiplatelets; Z79.899 Other long term (current) drug therapy; Z87.442 Personal history of urinary calculi; W44.F3XA Food entering into or through a natural orifice, initial encounter
CPT/HCPCS: 00731; 36415; 71045; 71250; 80048; 80053; 83735; 84100; 85025; 85610; 93005; 93010; 93306; 94640; 94660; 94667; 94668; 94761; 94762; 94799; 97116; 97161; 97165; 97530; 97535; 99285; A9270; J0131; J0330; J0692; J1100; J1171; J1650; J1885; J2003; J2405; J2470; J2704; J2919; J3010; J3475; J7121